=== PATIENT | male | born 1995 | race Caucasian/White ===

== ENCOUNTER 2020-02-14 15:37 | Emergency (ER) | payer OTHER, SELFPAY | END 2020-02-14 16:56 | disposition home or self-care (01) | LOC: ERS 15:37 | DX: S76.011A Strain of muscle, fascia and tendon of right hip, initial encounter (principal); S80.12XA Contusion of left lower leg, initial encounter; F17.290 Nicotine dependence, other tobacco product, uncomplicated; V23.4XXA Motorcycle driver injured in collision with car, pick-up truck or van in traffic accident, initial encounter | CPT/HCPCS: 99283 ==

== ENCOUNTER 2020-07-28 23:32 | Emergency (ER) | payer OTHER ==
[2020-07-28] MEDS ORDERED: Diazepam 5 MG TAB ONE (23:55)
[2020-07-28] MEDS ORDERED: Morphine 10 MG/ML VIAL ONE (23:55)
[2020-07-29] MEDS ORDERED: Ketorolac Tromethamine 30 MG/ML VIAL ONE (00:36)
== END 2020-07-29 01:46 | disposition home or self-care (01) ==
LOC: ERS 23:32
DX: M54.5 Low back pain (principal); Z79.899 Other long term (current) drug therapy; Z79.891 Long term (current) use of opiate analgesic
CPT/HCPCS: 96372; 99283; J1885; J2270